=== PATIENT | female | born 1935 | race Caucasian/White ===

== ENCOUNTER 2016-07-11 05:59 | Emergency (ER) | payer MEDICARE, OTHER ==
[~2016-07-11 05:59] MED LIST: AMLODIPINE BESYL5 MG PO; CARDURA2 MG PO; CEFTIN500 MG PO; COREG 6.25MG6.25 MG PO; COZAAR100 MG PO; DUONEB 2.5-0.5M1 AMP NEB; KLONOPIN1 MG PO; LACTINEX1 EACH PO; LASIX20 MG PO; LEVAQUIN750 MG PO; LIPITOR20 MG PO; MEDROL4 M1 PO; MUCINEX 600MG600 MG PO; NITROSTAT0.4 MG SL; PLAVIX75 MG PO; PREDNISONE 10MG10 MG PO; ZOCOR40 MG PO
[2016-07-11 06:24] LABS: BASOPHIL 0.3 % (0-2); EOSINOPHIL 4.2 % (0-7); HCT 36.7 % (37.0-47.0); LYMPHOCYTE 29.2 % (15-48); MCH 29.3 pg (25.0-31.0); MCV 97.6 fL (78.0-100.0); MPV 11.4 fL (6.0-9.5); NEUTROPHIL 56.3 % (41-80); PLT 150 K/uL (150-400); RBC 3.76 M/uL (4.20-5.40); RDW 14.1 % (11.5-14.0); WBC 7.7 K/uL (4.0-10.5)
[2016-07-11 06:27] LABS: INR 1.05 (0.9-1.2); PROTHROMBIN TIME 13.3 SECONDS (11.7-14.0); PTT 25.3 SECONDS (23.2-31.4)
[2016-07-11 06:29] LABS: BILIRUBIN NEGATIVE (NEGATIVE); BLOOD TRACE-LYSED Ery/uL (NEGATIVE); CLARITY CLEAR (CLEAR); COLOR YELLOW (YELLOW); GLUCOSE (U) TRACE mg/dL (NORMAL); KETONE (U) NEGATIVE (NEGATIVE); LEUKOCYTES NEGATIVE Leu/uL (NEGATIVE); NITRITE NEGATIVE (NEGATIVE); PROTEIN 1+ mg/dL (NEGATIVE); UROBILINOGEN 0.2 mg/dL (0.2-1.0)
[2016-07-11 06:32] LABS: SQUAMOUS EPITHELIAL CELLS RARE
[2016-07-11 06:37] LABS: CKMB 2.09 ng/mL (0.97-4.94); TROPONIN T < 0.010 ng/mL
[2016-07-11 06:38] LABS: AMPHETAMINES NEGATIVE (NEGATIVE); BARBITURATES NEGATIVE (NEGATIVE); BENZODIAZEPINES NEGATIVE (NEGATIVE); COCAINE NEGATIVE (NEGATIVE); MARIJUANA (THC) NEGATIVE (NEGATIVE); METHADONE NEGATIVE (NEGATIVE); TRICYCLIC ANTIDEPRESSANT NEGATIVE (NEGATIVE)
[2016-07-11 06:40] LABS: BILIRUBIN - TOTAL 0.4 mg/dL (0.1-1.0); GLOBULIN (CALCULATION) 1.7 g/dL (2.2-4.2); POTASSIUM 4.4 mmol/L (3.5-5.1); TOTAL PROTEIN 5.7 g/dL (6.4-8.3)
== END 2016-07-11 09:44 | disposition other institution (70) ==
LOC: FER 05:59
PROVIDERS: Emergency Medicine
DX: I11.9 Hypertensive heart disease without heart failure (principal); J44.9 Chronic obstructive pulmonary disease, unspecified; Z95.0 Presence of cardiac pacemaker
CPT/HCPCS: 36415; 36600; 70450; 71010; 80053; 80305; 81001; 82550; 82553; 82803; 84484; 85025; 85610; 85730; 93005; J2060; J2704

== ENCOUNTER → 2016-10-11 | Day surgery (SDC) | payer MEDICARE, OTHER ==
[~2016-10-11] VITALS: Ht 154.9 cm; Wt 52.8 kg
[2016-10-11 09:28] LABS: HCT 31.5 % (37.0-47.0); HGB 9.6 g/dl (12.5-16.0); MCH 29.4 pg (25.0-31.0); MCHC 30.5 g/dL (32.0-36.0); MCV 96.6 fL (78.0-100.0); RBC 3.26 M/uL (4.20-5.40); RDW 15.1 % (11.5-14.0); WBC 11.6 K/uL (4.0-10.5)
[2016-10-11 09:57] LABS: ALBUMIN 3.3 g/dL (3.4-4.8); BILIRUBIN - TOTAL 0.4 mg/dL (0.1-1.0); CREATININE 1.2 mg/dL (0.5-1.0); GLOBULIN (CALCULATION) 3.2 g/dL (2.2-4.2); POTASSIUM 4.8 mmol/L (3.5-5.1); TOTAL PROTEIN 6.5 g/dL (6.4-8.3)
== END | disposition home or self-care (01) ==
LOC: FAS 09:00
PROVIDERS: Surgery
DX: Z43.1 Encounter for attention to gastrostomy (principal); R63.3 Feeding difficulties; J44.1 Chronic obstructive pulmonary disease with (acute) exacerbation; Z99.81 Dependence on supplemental oxygen; I25.10 Atherosclerotic heart disease of native coronary artery without angina pectoris; Z95.1 Presence of aortocoronary bypass graft; I10 Essential (primary) hypertension; Z90.710 Acquired absence of both cervix and uterus; Z88.5 Allergy status to narcotic agent; Z88.6 Allergy status to analgesic agent
CPT/HCPCS: 36415; 80053; J2704